=== PATIENT | female | born 1960 | race Caucasian/White ===

== ENCOUNTER 2021-01-08 09:58 | Day surgery (SDC) | payer MEDICAID, SELFPAY ==
[~2021-01-08] VITALS: Ht 152.4 cm; Wt 48.1 kg
[2021-01-08] MEDS ORDERED: fentaNYL citrate 0.05 MG/ML VIAL ONE (12:00)
[2021-01-08] MEDS ORDERED: MIDAZOLAM 5 MG/5 ML VIAL ONE (12:00)
[2021-01-08] MEDS ORDERED: diphenhydrAMINE 50 MG/ML VIAL ONE (12:00)
[2021-01-08] MEDS ORDERED: LIDOCAINE 2% 100 MG/5 ML UJET TP ONE (12:01)
[2021-01-08] MEDS: fentaNYL citrate 0.05 MG/ML VIAL IVP ONE (12:06)
[2021-01-08] MEDS: MIDAZOLAM 2 MG/2 ML VIAL IVP ONE (12:07)
[2021-01-08] MEDS: LIDOCAINE 2% 100 MG/5 ML UJET TP ONE (12:08)
== END 2021-01-08 13:20 | disposition home or self-care (01) ==
LOC: MDS 09:58 → MMU 09:58 → MDS 13:20
PROVIDERS: ATTEND Internal Medicine Gastroenterology
DX: Z12.11 Encounter for screening for malignant neoplasm of colon (principal); I10 Essential (primary) hypertension; E11.9 Type 2 diabetes mellitus without complications; Z79.84 Long term (current) use of oral hypoglycemic drugs; Z79.899 Other long term (current) drug therapy; Z20.822 Contact with and (suspected) exposure to COVID-19
CPT/HCPCS: 45378; 82948; 87426; J2250; J3010; J1200

== ENCOUNTER 2021-08-19 08:59 | Day surgery (SDC) | payer OTHER ==
[~2021-08-19] VITALS: Ht 152.4 cm; Wt 46.7 kg
[2021-08-19 10:39] LABS: BASOPHILS % (AUTO) 0.5 % (0.0-2.0); EOSINOPHILS # (AUTO) 0.1 K/uL (0-0.4); EOSINOPHILS % (AUTO) 1.5 % (0.0-4.0); HEMATOCRIT 32.6 % (36-48); HEMOGLOBIN 10.8 g/dL (12.0-16.0); LYMPHOCYTES # (AUTO) 2.1 K/uL (2.5-16.5); LYMPHOCYTES % (AUTO) 26.8 % (20.5-51.1); MEAN CORPUSCULAR HEMOGLOBIN 28 pg (27-31); MEAN CORPUSCULAR HGB CONC 33 g/dL (33-37); MEAN CORPUSCULAR VOLUME 84.9 fL (80-94); MONOCYTES # (AUTO) 0.5 K/uL (0.8-1.0); MONOCYTES % (AUTO) 6.4 % (1.7-9.3); NEUTROPHILS # (AUTO) 5.1 K/uL (1.8-7.7); NEUTROPHILS % (AUTO) 64.8 % (42.2-75.2); PLATELET COUNT (AUTO) 323 K/uL (140-450); RED BLOOD CELL COUNT(AUTO) 3.83 MIL/uL (4.20-5.40); RED CELL DISTRIBUTION WIDTH 14.3 % (11.6-13.7); WHITE BLOOD COUNT (AUTO) 7.8 K/uL (4.8-10.8)
[2021-08-19 10:45] LABS: ALBUMIN 3.7 g/dL (3.4-5.0); ANION GAP 11.2 (8-16); CARBON DIOXIDE 28.5 mmol/L (21-32); CREATININE 0.7 mg/dL (0.6-1.3); POTASSIUM 4.7 mmol/L (3.5-5.1); TOTAL BILIRUBIN 0.5 mg/dL (0.0-1.0)
[2021-08-19] MEDS ORDERED: BUPIVACAINE-MPF 0.25% 30 ML VIAL INJ ONE (12:16)
[2021-08-19] MEDS ORDERED: LIDOCAINE/EPI 1% 1:100000 20 ML VIAL INJ ONE (12:16)
[2021-08-19] MEDS ORDERED: fentaNYL citrate 0.05 MG/ML VIAL ONE (12:39)
[2021-08-19] MEDS ORDERED: ROCURONIUM 50 MG/5 ML VIAL IV ONE (12:44)
[2021-08-19] MEDS ORDERED: ONDANSETRON 4 MG/2 ML VIAL ONE (12:45)
[2021-08-19] MEDS ORDERED: SUCCINYLCHOLINE CHLORIDE 200 MG/10 ML VIAL IVP ONE (12:45)
[2021-08-19] MEDS ORDERED: PROPOFOL 200 MG/20 ML VIAL IV ONE (12:45)
[2021-08-19] MEDS ORDERED: DEXAMETHASONE 4 MG/ML VIAL ONE (12:46)
[2021-08-19] MEDS ORDERED: ePHEDrine 50 MG/ML VIAL ONE (12:48)
[2021-08-19] MEDS ORDERED: LABETALOL 100 MG/20 ML VIAL ONE (13:06)
[2021-08-19] MEDS ORDERED: MEPERIDINE 50 MG/ML SYR ONE (13:48)
[2021-08-19] MEDS ORDERED: SUGAMMADEX SODIUM 200 MG/2 ML VIAL IV ONE (13:50)
[2021-08-19] MEDS ORDERED: MORPHINE SULFATE 4 MG/ML SYR IV PRN (14:00)
[2021-08-19] MEDS ORDERED: ONDANSETRON 4 MG/2 ML VIAL IV PRN (14:00)
[2021-08-19] MEDS ORDERED: HYDROmorphone 1 MG/ML AMP IVP PRN ×2 (14:00→14:25)
[2021-08-19] MEDS ORDERED: MORPHINE SULFATE 2 MG/ML SYR IVP PRN (14:00)
[2021-08-19] MEDS ORDERED: HYDROcodone/APAP 5/325 MG 1 TAB TAB PO PRN (14:00)
[2021-08-19] MEDS ORDERED: ACET-8386 PO (14:07)
[2021-08-19] MEDS ORDERED: NACL 0.9% 1,000 ML IV SCH (14:25)
[2021-08-19] MEDS ORDERED: MEPERIDINE 25 MG/ML SYR IVP PRN (14:25)
[2021-08-19] MEDS ORDERED: BLOOD GLUCOSE MONITORING 1 DEV DEV FS SCH (14:25)
[2021-08-19] MEDS ORDERED: ONDANSETRON 4 MG/2 ML VIAL IVP PRN (14:25)
[2021-08-19] MEDS ORDERED: diphenhydrAMINE 50 MG/ML VIAL IVP PRN (14:25)
--- NOTE | 2021-08-19 15:07 | NUR ---
PT ARRIVED ONTO UNIT VIA GURNEY FROM OR. ACCOMPANIED BY OR NURSE. PT ADMITTED UNDER DR YORK, OBSERVATION. PER DR YORK, PT IS TO BE OBSERVED FOR A FEW HOURS AND IF NO COMPLICATIONS, MAY DISCHARGE HOME LATER TONIGHT. PT IS AWAKE, ALERT, AND COOPERATIVE. RESPIRATIONS ARE EVEN AND UNLABORED ON ROOM AIR. LUNG SOUNDS CLEAR ON AUSCULTATION. HR REGULAR. BOWEL SOUNDS PRESENT IN ALL QUADRANTS. ABD IS SOFT AND NONTENDER, SKIN IS WARM AND DRY. PT HAS 4 SURGICAL INCISION SITES, FROM [place] PERFORMED EARLIER TODAY. MRSA SCREEN DONE. VITALS TAKEN. CALL LIGHT WITHIN REACH. ALL SAFETY MEASURES IN PLACE. NO COMPLAINTS OF PAIN OR DISCOMFORT. WILL CONTINUE TO MONITOR.
[2021-08-19 17:52] VITALS: BP 144/71
--- NOTE | 2021-08-19 18:28 | NUR ---
DID ROUNDS ON PT. PT EATING AT THIS TIME. TOLERATING WELL. NO COMPLAINTS OF PAIN OR DISCOMFORT. INFORMED PT REGARDING DISCHARGE ORDER. PT AND FAMILY ARE IN AGREEMENT WITH DISCHARGE. WILL DISCHARGE ONCE PT IS FINISHED WITH DINNER. WILL CONTINUE TO MONITOR.
--- NOTE | 2021-08-19 19:18 | NUR ---
PT DISCHARGED HOME WITH FAMILY. IV REMOVED. IV CATHETER INTACT. ALL BELONGINGS TAKEN UPON DISCHARGE.
== END 2021-08-19 19:30 | disposition home or self-care (01) ==
LOC: MDS 08:59 → MMU 08:59 → MTU 15:04 → MDS 19:30
PROVIDERS: ATTEND Surgery
DX: K80.10 Calculus of gallbladder with chronic cholecystitis without obstruction (principal); I10 Essential (primary) hypertension; E11.9 Type 2 diabetes mellitus without complications; K21.9 Gastro-esophageal reflux disease without esophagitis; M06.9 Rheumatoid arthritis, unspecified; Z79.899 Other long term (current) drug therapy; Z20.822 Contact with and (suspected) exposure to COVID-19
CPT/HCPCS: 36415; 47562; 71045; 80053; 82374; 85025; 86886; 86900; 86901; 87081; 87426; 93005; J0330; J0690; J1100; J2001; J2175; J2405; J2704; J3010; J3490; J7030; J7060; Q0092; 88304